=== PATIENT | male | born 1945 | race Caucasian/White ===

== ENCOUNTER → 2016-08-15 | Outpatient (CLI) | payer MEDICARE, BC | LOC: MW.CHIM 08:00 | CPT/HCPCS: 99215 ==

== ENCOUNTER → 2016-09-24 | Outpatient (CLI) | payer MEDICARE, BC | LOC: MW.CHIM 08:00 | PROVIDERS: ATTEND Internal Medicine | DX: Z51.81 Encounter for therapeutic drug level monitoring (principal); Z79.01 Long term (current) use of anticoagulants; I42.8 Other cardiomyopathies | CPT/HCPCS: 85610; 99211 ==

== ENCOUNTER 2021-11-17 11:42 | Emergency (ER) | payer MEDICARE, BC ==
[2021-11-17 12:24] LABS: CARBON DIOXIDE,CO2 18.3 mmol/L (21.0-32.0); POTASSIUM,K 4.6 mmol/L (3.5-5.1)
[2021-11-17 12:27] LABS: ESTIMATED GFR 17.7 ml/min
[2021-11-17] MEDS ORDERED: Sodium Chloride 0.9% 1,000 ML IV ONE (12:53)
[2021-11-17] MEDS ORDERED: Pantoprazole 40 MG in Sodium Chloride 0.9% 10 ML IVPUSH STA (12:55)
== END 2021-11-17 13:50 ==
LOC: MW.ED 11:42
DX: K92.2 Gastrointestinal hemorrhage, unspecified (principal); N17.9 Acute kidney failure, unspecified; N18.9 Chronic kidney disease, unspecified; D63.1 Anemia in chronic kidney disease; I50.9 Heart failure, unspecified; Z20.822 Contact with and (suspected) exposure to COVID-19; Z79.899 Other long term (current) drug therapy; Z79.01 Long term (current) use of anticoagulants
CPT/HCPCS: 36415; 36430; 80053; 85025; 85610; 86850; 86900; 86901; 86920; 93005; 96361; 96374; 99284; C9113; J3490; J7030; P9016; U0002; 93010; 99291

== ENCOUNTER 2021-12-21 18:21 | Emergency (ER) | payer MEDICARE, BC ==
[2021-12-21] MEDS ORDERED: Phytonadione 10 MG in Sodium Chloride 0.9% 50 ML IV ONE ×2 (18:47→19:15)
[2021-12-21] MEDS ORDERED: Factor IX Complex Human 500 UNIT VIAL IV STA (18:54)
[2021-12-21] MEDS ORDERED: Factor IX Complex Human 1,000 UNIT VIAL IV ONE (19:30)
[2021-12-21 20:10] LABS: CARBON DIOXIDE,CO2 22.9 mmol/L (21.0-32.0); POTASSIUM,K 4.3 mmol/L (3.5-5.1)
== END 2021-12-21 20:45 ==
LOC: MW.ED 18:21
DX: S06.5X0A Traumatic subdural hemorrhage without loss of consciousness, initial encounter (principal); S06.6X0A Traumatic subarachnoid hemorrhage without loss of consciousness, initial encounter; I48.92 Unspecified atrial flutter; I12.9 Hypertensive chronic kidney disease with stage 1 through stage 4 chronic kidney disease, or unspecified chronic kidney disease; N18.9 Chronic kidney disease, unspecified; Z79.01 Long term (current) use of anticoagulants; Z79.899 Other long term (current) drug therapy; Z20.822 Contact with and (suspected) exposure to COVID-19; W19.XXXA Unspecified fall, initial encounter
CPT/HCPCS: 36415; 70450; 80053; 83735; 84484; 85025; 85610; 93005; 96365; 96375; 99285; J3430; J3490; J7168; U0002; 93010; 99291